=== PATIENT | female | born 1980 | race African-American/Black ===

== ENCOUNTER 2022-08-20 09:44 | Outpatient (CLI) | payer OTHER | END 2022-08-20 19:15 | disposition home or self-care (01) | LOC: US 09:44 | PROVIDERS: ATTEND Nurse Practitioner Family | DX: R10.11 Right upper quadrant pain (principal) ==

== ENCOUNTER 2022-08-21 08:21 | Outpatient (CLI) | payer OTHER | END 2022-08-21 18:52 | disposition home or self-care (01) | LOC: LABW 08:21 | PROVIDERS: ATTEND Nurse Practitioner Family | DX: R10.11 Right upper quadrant pain (principal) | CPT/HCPCS: 36415; 82150; 83690 ==